=== PATIENT | male | born 1995 | race Caucasian/White ===

== ENCOUNTER → 2018-01-29 | Outpatient (CLI) | payer OTHER ==
[~2018-01-29] MED LIST: AMOXICILLIN 50500 MG PO; ANTIPYRINE-BENZ10 ML OTIC; AUGMENTIN 875875 MG PO; HYDROCODON-ACE1 EAC7 PO; MUCINEX D TABL1 EAC1 PO; NOHOMEMEDICATIONS; ZOFRAN ODT4 MG PO
[2018-01-29 12:35] LABS: MCV 83.9 fL (80.0-100.0); NUCLEATED RBCS 0 /100WBC
[2018-01-29 12:41] LABS: ABSOLUTE BASOPHILS 0.1 thou/uL (0.0-0.2); ABSOLUTE EOSINOPHILS 0.4 thou/uL (0.0-0.7); ABSOLUTE MONOCYTES 0.6 thou/uL (0.0-1.2); ABSOLUTE NEUTROPHILS 8.4 thou/uL (1.6-8.1); BASOPHILS 0.5 %; EOSINOPHILS 3.1 %; HEMATOCRIT 45.3 % (42.0-52.0); HEMOGLOBIN 15.3 gm/dL (14.0-18.0); LYMPHOCYTES 23.9 %; MCH 28.4 pg (26.0-34.0); MCHC 33.8 g/dL (28.0-37.0); MONOCYTES 4.7 %; MPV 8.5 fl. (7.2-11.1); PLATELET COUNT* 201 thou/uL (150-400); POLYS 67.8 %; RBC 5.39 mil/uL (4.50-6.00); RDW-CV 14.1 % (10.5-14.5); WBC 12.4 thou/uL (4.0-11.0)
[2018-01-29 12:55] LABS: ALBUMIN 3.8 g/dL (3.4-5.0); CALCIUM 9.7 mg/dL (8.5-10.1); POTASSIUM 3.9 mmol/L (3.5-5.1); TOTAL BILIRUBIN 0.4 mg/dL (<0.1-1.0); TOTAL PROTEIN 8.1 g/dL (6.4-8.2)
== END ==
LOC: M.LAB 12:11
DX: E66.01 Morbid (severe) obesity due to excess calories (principal); R11.2 Nausea with vomiting, unspecified; R06.02 Shortness of breath; R05 Cough

== ENCOUNTER → 2021-01-08 | Outpatient (CLI) | payer OTHER | LOC: M.ULTRA 14:18 | PROVIDERS: ATTEND Family Medicine | DX: I80.02 Phlebitis and thrombophlebitis of superficial vessels of left lower extremity (principal) ==